=== PATIENT | female | born 1970 | race Asian ===

== ENCOUNTER 2022-01-04 08:22 | Outpatient (CLI) | payer OTHER, SELFPAY ==
[2022-01-04 14:12] LABS: Albumin* 4.4 g/dL (3.3-5.0); Chloride* 102 mmol/L (96-114)
[2022-01-04 14:13] LABS: Sodium* 141 mmol/L (135-149)
[2022-01-04 14:15] LABS: Aspartate Amino Transferase* 27 U/L (12-35); Bilirubin Total* 0.6 mg/dL (0.1-1.5); Carbon Dioxide* 29 mmol/L (20-32); Cholesterol* 238 mg/dL (90-199); Creatinine* 0.5 mg/dL (0.5-1.5); Estimated Glomerular Filt Rate 112 ml/min; Total Protein* 7.2 g/dL (6.0-8.3)
[2022-01-04 14:16] LABS: Alanine Aminotransferase* 17 U/L (4-35); Alkaline Phosphatase* 56 U/L (40-150); Blood Urea Nitrogen* 14 mg/dL (7-30); Calcium* 8.9 mg/dL (8.4-10.6); Glucose* 94 mg/dL (60-115); Triglycerides* 61 mg/dL (40-149)
[2022-01-04 14:17] LABS: HDL Cholesterol* 76 mg/dL (>=50); LDL Cholesterol Calculated 150 mg/dL (<100)
[2022-01-04 16:21] LABS: Vitamin B12* 648 pg/mL (243-894)
== END 2022-01-04 08:23 | disposition home or self-care (01) ==
PROVIDERS: PCP Physician Assistant Medical; Visit Provider Physician Assistant Medical
DX: Z01.419 Encounter for gynecological examination (general) (routine) without abnormal findings (principal); G51.39 Clonic hemifacial spasm, unspecified; H53.8 Other visual disturbances; Z13.6 Encounter for screening for cardiovascular disorders
CPT/HCPCS: 80053; 80061; 82607

== ENCOUNTER 2022-05-24 09:52 | Outpatient (CLI) | payer BC, SELFPAY | END 2022-05-24 09:53 | disposition home or self-care (01) | LOC: NFLDREF 05-25 15:28 | PROVIDERS: PCP Physician Assistant Medical; Referring Provider Physician Assistant Medical; Visit Provider Physician Assistant Medical | DX: E78.5 Hyperlipidemia, unspecified (principal) | CPT/HCPCS: 80061 ==

== ENCOUNTER 2022-07-09 14:26 | Outpatient (CLI) | payer BC, SELFPAY ==
--- NOTE | 2022-07-09 14:40 | CRLHL7_ITS ---
For Patients: As a result of the Century Cures Act, medical imaging exams and procedure reports are released immediately into your electronic medical record. You may view this report before your referring provider. If you have questions, please contact your health care provider. BILATERAL SCREENING MAMMOGRAM WITH COMPUTER-AIDED DETECTION AND TOMOSYNTHESIS TECHNIQUE: CC and MLO views were obtained. These mammographic images have been obtained using full-field digital technique. These mammographic images were interpreted with the benefit of computer-aided detection. Breast Tomosynthesis was used in this interpretation. COMPARISON FILM: 01/25/21, 01/15/20, 06/24/18. FINDINGS: There are scattered areas of fibroglandular density IMPRESSION: There is no radiographic evidence for malignancy. ASSESSMENT: BI-RADS Category 1: Negative RECOMMENDATION: Routine screening mammogram in 1 year. A lay language report of this examination will be provided to the patient. Sergio Gutierrez M.D. Diagnostic Radiologist [email or web address] BRENT/Dictated by: Sergio Gutierrez MD @ 07/10/2022 8:27:00 AM (Electronically Signed)
== END 2022-07-09 14:27 | disposition home or self-care (01) ==
LOC: MAMMO 14:27
PROVIDERS: PCP Physician Assistant Medical; Visit Provider Physician Assistant Medical
DX: Z12.31 Encounter for screening mammogram for malignant neoplasm of breast (principal)
CPT/HCPCS: 77063; 77067